=== PATIENT | female | born 1930 | race Caucasian/White ===

== ENCOUNTER 2016-05-10 23:23 | Emergency (ER) | payer OTHER ==
[~2016-05-10] VITALS: Ht 157.5 cm; Wt 70.7 kg
[~2016-05-10 23:23] MED LIST: ADULT LOW DOSE81 M1 PO; AMLODIPINE BESY10 MG PO; AMLODIPINE BESYL5 MG PO; ASCORBIC ACID100 MG PO; ASPIRIN; ASPIRIN E.C.81 M1 PO; BENADRYL25 MG PO; COZAAR25 MG PO; CYANOCOBAL1000 MCG/1 IM; CYANOCOBAL1000 MCG/2 IJ; CYANOCOBAL1000 MCG/2 IM; CYANOCOBALAMIN; Chronulac,Cephulac,E PO; DAILY VITAMIN1 EAC2 PO; DAILY VITAMIN1 EAC8 PO; DESYREL100 MG PO; DONEPEZIL HCL5 MG PO; FUROSEMIDE40 MG PO; GLIMEPIRIDE1 MG PO; GLUCOPHAGE XR1000 MG PO; GLUCOPHAGE1000 MG PO; HYDROCHLOROTH12.5 M2 PO; HYDROCHLOROTHIA25 MG PO; HYDROCODON-ACE1 EAC7 PO; HYDROCODON-ACE1 EAC8 PO; HYDROCODONE-AP1 EA11 PO; JANUVIA100 MG PO; LACTULOSE10 GM/15 M PO; LACTULOSE10 GM/151 PO; LEVAQUIN500 MG PO; LEVAQUIN750 MG PO; LOPRESSOR50 MG PO; LORADAMED10 MG PO; LOSARTAN POTASS25 MG PO; LOW DOSE ASPIRI81 M1 PO; LOW DOSE ASPIRI81 M2 PO; Lactinex,Floranex PO; Levaquin PO; MACROBID100 MG PO; METFORMIN HCL1000 M1; METOLAZONE2.5 MG PO; METOPROLOL TART50 MG PO; MOBIC15 MG PO; MULTIVITAMIN1 EAC1 PO; NEURONTIN300 MG PO; NITROFURANTOIN100 M3; NITROFURANTOIN100 MG PO; NORVASC10 MG PO; NOVOLOG PE100 UNITS/ SC; Neurontin PO; OXYCODON-ACETA1 EAC1; PRAVACHOL10 MG PO; PRAVASTATIN PO; PRAVASTATIN SOD10 MG PO; PREDNISONE20 MG PO; PRILOSEC40 MG PO; PROTONIX40 MG PO; RANITIDINE HCL150 MG PO; SINEMET; SINEMET 25-11 TABLET PO; TOPROL XL100 MG PO; TOPROL XL50 MG PO; TRAZODONE HCL100 MG PO; TRAZODONE PO; Tylenol Regular Stre PO; VITAMIN C; VITAMIN D33000 UNIT PO; ZESTRIL,PRINIVI10 M1 PO; ZESTRIL,PRINIVI10 MG PO; ZOLOFT50 M1 PO; ZOLOFT50 MG PO; Zoloft PO
[2016-05-11 01:42] VITALS: BP 153/70
== END 2016-05-11 01:42 ==
LOC: EME → EDBD 23:23 → EME 05-11 01:42
DX: Z04.3 Encounter for examination and observation following other accident (principal); E11.9 Type 2 diabetes mellitus without complications; I10 Essential (primary) hypertension; G30.9 Alzheimer's disease, unspecified; F02.80 Dementia in other diseases classified elsewhere, unspecified severity, without behavioral disturbance, psychotic disturbance, mood disturbance, and anxiety; W05.0XXA Fall from non-moving wheelchair, initial encounter; E78.5 Hyperlipidemia, unspecified; Z86.73 Personal history of transient ischemic attack (TIA), and cerebral infarction without residual deficits; Z88.6 Allergy status to analgesic agent; Z88.2 Allergy status to sulfonamides; Z91.041 Radiographic dye allergy status
CPT/HCPCS: 93005

== ENCOUNTER 2016-07-29 05:01 | Inpatient (IN) | payer OTHER ==
[~2016-07-29] VITALS: Ht 165.1 cm; Wt 76.7 kg
[~2016-07-29 05:01] MED LIST changes: +ATORVASTATIN CA10 MG PO; +CITRUCEL907 G1 PO; +CRANBERRY 4001 EAC1 PO; +DULCOLAX10 MG PR; +FLEET ENEMA-AD118 ML PR; +FUROSEMIDE20 MG PO; +GABAPENTIN100 MG PO; +GLUCAGEN1 MG IM; +GLUCOSE GEL15 GM PO; +IRON325 MG PO; +LANTUS 3 M100 UNITS1 SC; +METOPROLOL TART25 MG PO; +MILK OF MAGN PO; +MIRALAX17 GM PO; +NOVOLOG 10100 UNITS/ SC; +NOVOLOG100 UNIT/1 SC; +PRESERVISION T1 EACH PO; +SENNA8.6 MG PO; +SERTRALINE HCL100 MG PO; +TRAZODONE HCL150 MG PO; +TYLENOL REGULA325 MG PO; +TYLENOL650 MG PR; +VITAMIN C1000 MG PO; +VITAMIN D2000 UNIT PO
[2016-07-29 05:41] LABS: HEMATOCRIT 26.9 % (36.0-46.0); MCH 28.9 PG (29.0-34.0); MCV 90.3 FL (83-99); PLATELET COUNT 197 K/uL (156-360); RBC DIS.WIDTH-CV 16.3 % (11.8-14.6); RBC DIS.WIDTH-SD 52.8 % (39-53); RED BLOOD COUNT 2.98 M/uL (3.80-5.20)
[2016-07-29 05:44] LABS: CHLORIDE 101 mEq/L (99-109); POTASSIUM 4.7 mEq/L (3.7-5.4); SODIUM 133 mEq/L (136-147)
[2016-07-29 05:45] LABS: GLUCOSE 114 mg/dL (70-99)
[2016-07-29 05:47] LABS: ANION GAP 12 MEQ/L (2-14)
[2016-07-29 05:49] LABS: GFR ESTIMATE (CALCULATED) 15 mL/min/
[2016-07-29 05:50] LABS: UREA NITROGEN (BUN) 41 mg/dL (9-23)
[2016-07-29 06:44] LABS: ADD MIUA? YES; BILIRUBIN NEGATIVE; BLOOD SMALL; COLOR YELLOW ((YELLOW)); GLUCOSE (STRIP) NEGATIVE; KETONES NEGATIVE; LEUKOCYTES LARGE; NITRITE NEGATIVE; PROTEIN (STRIP) 100; SPECIFIC GRAVITY 1.009 (1.000-1.030); UROBILINOGEN 0.2 MG/DL (0.2-1.0)
[2016-07-29 07:27] LABS: BACTERIA 4+ /HPF; EPITHELIAL CELLS 1+ /HPF; MUCUS NONE SEEN /LPF; RED BLOOD CELLS 15-20 /HPF (0-5); UCUL ADDED? YES
[2016-07-29 07:40] LABS: BASOPHIL COUNT 0.1 K/uL (0-0.1); EOSINOPHIL (%) 0 % (0-5); IMMATURE GRANULOCYTE (%) 3.9 % (0.0-0.7); IMMATURE GRANULOCYTE COUNT 1.1 K/uL; INSTRUMENT ABS NEUTROPHIL CT 25.9 K/uL; LYMPHOCYTE COUNT 0.8 K/uL (1.0-2.8); MONOCYTE COUNT 1.2 K/uL (0-0.8); NEUTROPHIL (%) 89.3 % (45-76); NEUTROPHIL COUNT 25.9 K/uL (1.8-6.4)
[2016-07-29 10:50] VITALS: BP 141/67
[2016-07-29] MEDS ORDERED: NORVASC5 MG PO (12:42)
[2016-07-29] MEDS ORDERED: LO-DOSE ASPIRIN81 M2 PO (12:43)
[2016-07-29] MEDS ORDERED: PRILOSEC OTC20 MG PO (13:00)
[2016-07-29] MEDS ORDERED: ATORVASTATIN CA10 MG PO (13:01)
[2016-07-29] MEDS ORDERED: LANTUS 3 M100 UNITS1 SC (13:03)
[2016-07-29] MEDS ORDERED: FEOSOL325 MG PO (13:07)
[2016-07-29] MEDS ORDERED: NOVOLOG100 UNIT/1 SC (13:11)
[2016-07-29 15:25] VITALS: BP 131/60
[2016-07-29 19:07] VITALS: BP 149/65
[2016-07-29 21:43] LABS: POINT-OF-CARE USER ID 609231305
[2016-07-30 00:04] VITALS: BP 106/58
[2016-07-30 06:14] VITALS: BP 124/65
[2016-07-30 06:47] LABS: MEAN PLAT.VOLUME 9.7 uM^3 (9.5-12.4); PLATELET COUNT 180 K/uL (156-360)
[2016-07-30 06:48] LABS: HEMATOCRIT 24.8 % (36.0-46.0); MCH 29.6 PG (29.0-34.0); MCHC 31.9 G/DL (30.0-36.0); MCV 92.9 FL (83-99); RBC DIS.WIDTH-CV 17.1 % (11.8-14.6); RBC DIS.WIDTH-SD 57.5 % (39-53); RED BLOOD COUNT 2.67 M/uL (3.80-5.20)
[2016-07-30 06:50] LABS: WHITE BLOOD COUNT 30.7 K/uL (4.1-10.2)
[2016-07-30 07:16] LABS: ANION GAP 10 MEQ/L (2-14); CHLORIDE 104 MEQ/L (99-109); GFR ESTIMATE (CALCULATED) 15 mL/min/; GLUCOSE 90 mg/dL (70-99); POTASSIUM 4.8 MEQ/L (3.7-5.4); SAMPLE HEMOLYSIS CHECK 0; SAMPLE ICTERIC CHECK 0; SAMPLE LIPEMIA CHECK 0; SODIUM 134 MEQ/L (136-147); UREA NITROGEN (BUN) 51 mg/dL (9-23)
[2016-07-30 08:10] VITALS: BP 152/72
[2016-07-30 11:30] VITALS: BP 148/75
[2016-07-30 11:46] LABS: POINT-OF-CARE METER ID UU14162508
[2016-07-30 15:10] VITALS: BP 177/78
[2016-07-30 16:43] LABS: POINT-OF-CARE METER ID UU14162508
[2016-07-30 20:51] VITALS: BP 154/73
[2016-07-30 22:07] LABS: POINT-OF-CARE METER ID UU14162508
[2016-07-31 00:46] VITALS: BP 174/72
[2016-07-31 04:47] VITALS: BP 172/77
[2016-07-31 06:39] LABS: HEMATOCRIT 25.2 % (36.0-46.0); MCH 29.7 PG (29.0-34.0); MCHC 32.1 G/DL (30.0-36.0); MCV 92.3 FL (83-99); MEAN PLAT.VOLUME 9.6 uM^3 (9.5-12.4); PLATELET COUNT 179 K/uL (156-360); RBC DIS.WIDTH-CV 17.1 % (11.8-14.6); RBC DIS.WIDTH-SD 57.6 % (39-53); RED BLOOD COUNT 2.73 M/uL (3.80-5.20); WHITE BLOOD COUNT 25.4 K/uL (4.1-10.2)
[2016-07-31 06:45] LABS: POINT-OF-CARE METER ID UU14162508
[2016-07-31 07:28] LABS: ANION GAP 13 MEQ/L (2-14); CHLORIDE 105 MEQ/L (99-109); GFR ESTIMATE (CALCULATED) 18 mL/min/; POTASSIUM 4.8 MEQ/L (3.7-5.4); SAMPLE HEMOLYSIS CHECK 0; SAMPLE ICTERIC CHECK 0; SAMPLE LIPEMIA CHECK 0; SODIUM 136 MEQ/L (136-147); UREA NITROGEN (BUN) 51 mg/dL (9-23)
[2016-07-31 07:31] LABS: GLUCOSE 119 mg/dL (70-99)
[2016-07-31 08:05] VITALS: BP 159/69
[2016-07-31 11:00] VITALS: BP 162/71
[2016-07-31 15:15] VITALS: BP 194/81
[2016-07-31 16:49] LABS: POINT-OF-CARE METER ID UU14162508
[2016-08-01 00:03] VITALS: BP 183/81
[2016-08-01 07:22] LABS: HEMATOCRIT 26.7 % (36.0-46.0); MCH 29.2 PG (29.0-34.0); MCHC 31.8 G/DL (30.0-36.0); MCV 91.8 FL (83-99); MEAN PLAT.VOLUME 9.6 uM^3 (9.5-12.4); PLATELET COUNT 203 K/uL (156-360); RBC DIS.WIDTH-CV 16.4 % (11.8-14.6); RBC DIS.WIDTH-SD 55.9 % (39-53); RED BLOOD COUNT 2.91 M/uL (3.80-5.20); WHITE BLOOD COUNT 17.5 K/uL (4.1-10.2)
[2016-08-01 07:53] LABS: ANION GAP 10 MEQ/L (2-14); CHLORIDE 104 MEQ/L (99-109); GFR ESTIMATE (CALCULATED) 20 mL/min/; GLUCOSE 139 mg/dL (70-99); POTASSIUM 4.2 MEQ/L (3.7-5.4); SAMPLE HEMOLYSIS CHECK 0; SAMPLE ICTERIC CHECK 0; SAMPLE LIPEMIA CHECK 0; SODIUM 136 MEQ/L (136-147); UREA NITROGEN (BUN) 40 mg/dL (9-23)
[2016-08-01 09:23] VITALS: BP 196/85
[2016-08-01 16:00] VITALS: BP 186/82
[2016-08-02 00:16] VITALS: BP 155/68
[2016-08-02 06:47] LABS: POINT-OF-CARE METER ID UU14162508
[2016-08-02 08:00] VITALS: BP 197/94
[2016-08-02 08:15] VITALS: BP 197/94
[2016-08-02 09:07] LABS: HEMATOCRIT 27.7 % (36.0-46.0); MCH 29.7 PG (29.0-34.0); MCHC 32.5 G/DL (30.0-36.0); MCV 91.4 FL (83-99); MEAN PLAT.VOLUME 9.4 uM^3 (9.5-12.4); PLATELET COUNT 198 K/uL (156-360); RBC DIS.WIDTH-CV 15.9 % (11.8-14.6); RBC DIS.WIDTH-SD 52.7 % (39-53); RED BLOOD COUNT 3.03 M/uL (3.80-5.20); WHITE BLOOD COUNT 9.8 K/uL (4.1-10.2)
[2016-08-02 09:42] LABS: ANION GAP 13 MEQ/L (2-14); CHLORIDE 100 MEQ/L (99-109); GFR ESTIMATE (CALCULATED) 24 mL/min/; GLUCOSE 122 mg/dL (70-99); POTASSIUM 3.9 MEQ/L (3.7-5.4); SAMPLE HEMOLYSIS CHECK 0; SAMPLE ICTERIC CHECK 0; SAMPLE LIPEMIA CHECK 0; SODIUM 134 MEQ/L (136-147); UREA NITROGEN (BUN) 35 mg/dL (9-23)
[2016-08-02 10:19] VITALS: BP 170/82
[2016-08-02 16:00] VITALS: BP 187/84
[2016-08-02 23:53] VITALS: BP 196/78
[2016-08-03] VITALS (7 sets, daily range): BP systolic 148–196; BP diastolic 64–80
[2016-08-03 06:57] LABS: POINT-OF-CARE METER ID UU14162508
[2016-08-03 09:06] LABS: HEMATOCRIT 31.1 % (36.0-46.0); MCH 28.6 PG (29.0-34.0); MCHC 32.2 G/DL (30.0-36.0); MCV 88.9 FL (83-99); MEAN PLAT.VOLUME 9.4 uM^3 (9.5-12.4); PLATELET COUNT 225 K/uL (156-360); RBC DIS.WIDTH-CV 15.8 % (11.8-14.6); RBC DIS.WIDTH-SD 51.2 % (39-53); WHITE BLOOD COUNT 9.5 K/uL (4.1-10.2)
[2016-08-03 09:38] LABS: ANION GAP 13 MEQ/L (2-14); CHLORIDE 99 MEQ/L (99-109); GFR ESTIMATE (CALCULATED) 24 mL/min/; GLUCOSE 167 mg/dL (70-99); POTASSIUM 3.7 MEQ/L (3.7-5.4); SAMPLE HEMOLYSIS CHECK 0; SAMPLE ICTERIC CHECK 0; SAMPLE LIPEMIA CHECK 0; SODIUM 133 MEQ/L (136-147); UREA NITROGEN (BUN) 32 mg/dL (9-23)
[2016-08-04 04:47] VITALS: BP 152/68
[2016-08-04 07:09] LABS: MCHC 32.8 G/DL (30.0-36.0); MCV 88.4 FL (83-99); MEAN PLAT.VOLUME 9.4 uM^3 (9.5-12.4); PLATELET COUNT 272 K/uL (156-360); RBC DIS.WIDTH-CV 15.8 % (11.8-14.6); RBC DIS.WIDTH-SD 50.9 % (39-53); RED BLOOD COUNT 3.62 M/uL (3.80-5.20); WHITE BLOOD COUNT 9.1 K/uL (4.1-10.2)
[2016-08-04 07:41] LABS: ANION GAP 13 MEQ/L (2-14); CHLORIDE 98 MEQ/L (99-109); GFR ESTIMATE (CALCULATED) 21 mL/min/; GLUCOSE 159 mg/dL (70-99); POTASSIUM 3.8 MEQ/L (3.7-5.4); SAMPLE HEMOLYSIS CHECK 0; SAMPLE ICTERIC CHECK 0; SAMPLE LIPEMIA CHECK 0; SODIUM 134 MEQ/L (136-147); UREA NITROGEN (BUN) 32 mg/dL (9-23)
[2016-08-04 07:48] VITALS: BP 177/75
[2016-08-04 12:00] VITALS: BP 168/74
[2016-08-04 15:29] VITALS: BP 158/81
[2016-08-04 20:33] VITALS: BP 170/68
[2016-08-04 23:32] VITALS: BP 139/74
[2016-08-05 04:45] VITALS: BP 168/72
[2016-08-05 06:46] LABS: MCH 29.3 PG (29.0-34.0); MCV 88.8 FL (83-99); MEAN PLAT.VOLUME 9.3 uM^3 (9.5-12.4); PLATELET COUNT 269 K/uL (156-360); RBC DIS.WIDTH-CV 15.9 % (11.8-14.6); RBC DIS.WIDTH-SD 51.7 % (39-53); RED BLOOD COUNT 3.38 M/uL (3.80-5.20); WHITE BLOOD COUNT 8.1 K/uL (4.1-10.2)
[2016-08-05 07:15] LABS: ANION GAP 11 MEQ/L (2-14); CHLORIDE 99 MEQ/L (99-109); GFR ESTIMATE (CALCULATED) 23 mL/min/; GLUCOSE 160 mg/dL (70-99); POTASSIUM 3.9 MEQ/L (3.7-5.4); SAMPLE HEMOLYSIS CHECK 0; SAMPLE ICTERIC CHECK 0; SAMPLE LIPEMIA CHECK 0; SODIUM 133 MEQ/L (136-147); UREA NITROGEN (BUN) 31 mg/dL (9-23)
[2016-08-05 07:30] VITALS: BP 175/75
[2016-08-05 12:04] LABS: POINT-OF-CARE METER ID UU14162508
[2016-08-05 12:30] VITALS: BP 178/82
[2016-08-05 16:10] VITALS: BP 169/73
[2016-08-05 16:49] LABS: POINT-OF-CARE METER ID UU14162508
[2016-08-05 23:50] VITALS: BP 154/69
[2016-08-06 08:35] VITALS: BP 182/72
[2016-08-06 12:13] LABS: POINT-OF-CARE METER ID UU14162508
[2016-08-06 14:20] VITALS: BP 156/64
[2016-08-06 16:00] VITALS: BP 180/72
[2016-08-06 19:09] VITALS: BP 142/68
[2016-08-06 20:17] VITALS: BP 157/74
[2016-08-06 23:19] VITALS: BP 159/81
[2016-08-07 04:34] VITALS: BP 178/80
[2016-08-07 08:26] VITALS: BP 178/75
[2016-08-07 10:19] LABS: HEMATOCRIT 31.9 % (36.0-46.0); MCH 28.8 PG (29.0-34.0); MCV 90.1 FL (83-99); MEAN PLAT.VOLUME 9.3 uM^3 (9.5-12.4); PLATELET COUNT 330 K/uL (156-360); RBC DIS.WIDTH-CV 16.1 % (11.8-14.6); RBC DIS.WIDTH-SD 53.5 % (39-53); RED BLOOD COUNT 3.54 M/uL (3.80-5.20); WHITE BLOOD COUNT 9.3 K/uL (4.1-10.2)
[2016-08-07 10:49] LABS: ANION GAP 11 MEQ/L (2-14); CHLORIDE 102 MEQ/L (99-109); GFR ESTIMATE (CALCULATED) 23 mL/min/; GLUCOSE 161 mg/dL (70-99); POTASSIUM 4.4 MEQ/L (3.7-5.4); SAMPLE HEMOLYSIS CHECK 0; SAMPLE ICTERIC CHECK 0; SAMPLE LIPEMIA CHECK 0; SODIUM 132 MEQ/L (136-147); UREA NITROGEN (BUN) 33 mg/dL (9-23)
[2016-08-07] MEDS ORDERED: APRESOLINE25 MG PO (11:15)
[2016-08-07] MEDS ORDERED: AMLODIPINE BESY10 MG PO (11:16)
[2016-08-07] MEDS ORDERED: LOPRESSOR50 MG PO (11:16)
[2016-08-07 12:29] VITALS: BP 180/76
== END 2016-08-07 16:23 | DRG 872 ==
LOC: EME → EDBD 05:01 → EME 05:01 → 2EAST 08:40 → EDOF 08:40 → 2EAST 10:32
PROVIDERS: Family Medicine; Internal Medicine
DX: A41.51 Sepsis due to Escherichia coli [E. coli] (principal); N17.9 Acute kidney failure, unspecified; E87.5 Hyperkalemia; N28.1 Cyst of kidney, acquired; E11.22 Type 2 diabetes mellitus with diabetic chronic kidney disease; F33.9 Major depressive disorder, recurrent, unspecified; I12.9 Hypertensive chronic kidney disease with stage 1 through stage 4 chronic kidney disease, or unspecified chronic kidney disease; N12 Tubulo-interstitial nephritis, not specified as acute or chronic; D63.8 Anemia in other chronic diseases classified elsewhere; N32.89 Other specified disorders of bladder; B96.20 Unspecified Escherichia coli [E. coli] as the cause of diseases classified elsewhere; H91.90 Unspecified hearing loss, unspecified ear; F03.90 Unspecified dementia, unspecified severity, without behavioral disturbance, psychotic disturbance, mood disturbance, and anxiety; R53.1 Weakness; J98.11 Atelectasis; N18.3 Chronic kidney disease, stage 3 (moderate); K21.9 Gastro-esophageal reflux disease without esophagitis; E55.9 Vitamin D deficiency, unspecified; G47.00 Insomnia, unspecified; E78.5 Hyperlipidemia, unspecified; R32 Unspecified urinary incontinence; E66.9 Obesity, unspecified; Z68.28 Body mass index [BMI] 28.0-28.9, adult; Z86.73 Personal history of transient ischemic attack (TIA), and cerebral infarction without residual deficits; Z87.891 Personal history of nicotine dependence; Z88.6 Allergy status to analgesic agent; Z88.1 Allergy status to other antibiotic agents; Z88.2 Allergy status to sulfonamides
CPT/HCPCS: 71010; 74176; 76770; 80048; 81003; 82948; 83605; 85025; 85027; 87040; 87077; 87086; 87186; 87801; 93005; 94010; 99202; 99281; 99285; J0360; J0696; J1335; J1580; J1815; J2405; J2765; J7030; J7050